=== PATIENT | male | born 1955 | race Caucasian/White ===

== ENCOUNTER 2021-02-16 11:15 | Inpatient (IN) | payer MEDICARE, SELFPAY ==
[2021-02-16] VITALS (10 sets, daily range): BP systolic 83–138; BP diastolic 56–99; PULSE 96–119; RESP 16–20; TEMP 35.9–36.6; O2SAT 97–100; BMI 17.2
--- NOTE | ~2021-02-16 | XR_ITS ---
XR chest 1V portable DATE: 02/16/2021 13:52 INDICATION: Tachycardia. Altered mental state. TECHNIQUE: Portable upright AP chest on 02/16/2021 at 1349 hours COMPARISON: None FINDINGS: There is anterior dislocation of the right glenohumeral joint with suggestion of Hill-Sachs deformity. There is likely chronic deformity of the upper right rib cage. There is diffuse osteopenia. There is prominent dextroscoliosis of the thoracic spine and levoscolios is of the lumbar spine. Heart size appears within normal limits. No pulmonary infiltrate or consolidation, pleural effusion o r pulmonary vascular congestion or pneumothorax is detected. IMPRESSION: No active cardiopulmonary disease Anterior dislocation of right shoulder with probable Hill-Sachs deformity Probable chronic deformity of the upper right rib cage Osteopenia Prominent thoracic and lumbar scoliosis Reviewed, dictated and finalized at location B. OR STRATEGY ANALYST
--- NOTE | ~2021-02-16 | XR_ITS ---
EXAMINATION: XR shoulder RT min 2V DATE: 02/18/2021 11:21 INDICATION: Right shoulder dislocation. TECHNIQUE: 5 views of right shoulder were obtained. COMPARISON: Chest single view 02/16/2021 FINDINGS: There is anterior dislocation of humeral head with respect to glenoid. There is an impactio n fracture deformity of posterolateral humeral head (Hill-Sachs fracture). There is severe osteoarthr itis of acromioclavicular joint. There are osteophytes of the glenoid. There are multiple age-indeter minate right rib fractures. IMPRESSION: 1. Anterior right shoulder dislocation. 2. Hill-Sachs fracture deformity. 3. Age-indeterminate right rib fractures. Reviewed, dictated and finalized at location A. NSIC COMPUTER EXAMINER
--- NOTE | ~2021-02-16 | CT_ITS ---
EXAMINATION: CT brain wo con DATE: 02/16/2021 13:51 INDICATION: Altered mental status. Confusion. Weakness. TECHNIQUE: Computed tomography (CT) of the head was performed without intravenous contrast. The mA wa s adjusted according to patient size. Iterative reconstruction technique was employed. The dose-lengt h product was 605.33 mGy-cm. COMPARISON: None FINDINGS: There are scattered areas of low attenuation in the cerebral white matter. There is no intr acranial hemorrhage, acute infarction, or abnormal intracranial mass lesion. The ventricles are feli l in size. The orbits are normal. There is mucosal thickening in the paranasal sinuses. The mastoid a ir cells are normal. C1 ring is chronically ununited anteriorly and possibly. IMPRESSION: 1. Mild nonspecific cerebral white matter disease, which likely represents chronic small vessel ische roel disease. Reviewed, dictated and finalized at location A. Y POLISHER IMPRESSION: 1. Mild nonspecific cerebral white matter disease, which likely represents director safety zulema small vessel ischemic disease.
--- NOTE | 2021-02-16 11:34 | ED.WEAKNESS ---
HPI - Weakness General Chief complaint: Weakness Stated complaint: ambulance Time Seen by Provider: 02/16/21 11:35 Source: family Mode of arrival: EMS Limitations: altered mental status, physical limitation and other (Developmental disability) History of Present Illness HPI Narrative: 65-year-old man brought to the emergency department by EMS the past of his nhmzovg-[id number] who lives with him. He has been weak, confused and eating poorly for last few days. He fell out of bed yesterday. His caregiver states that he does not do anything to care for himself since April that patient has not been able to ambulate much less transfer. This started after a head injury. His functional status is been dwindling. Patient has a history of hemiplegic CP predominantly left-sided weakness and lower extremity weakness he was able to ambulate with a walker and braces (but was very shaky) as recently as July of 2020. Even then his family was reporting that he mainly stays in bed. Complaint: generalized weakness Onset (ago): day(s) Duration: constant Location: generalized Migration: none Relieving factors: none Exacerbating factors: none Associated symptoms: confusion Related Data Home Medications Medication Instructions Recorded Confirmed No Home Medications 02/16/21 02/16/21 Allergies Allergy/AdvReac Type Severity Reaction Status Date / Time No Known Allergies Allergy Unverified 08/30/16 11:42 Review of Systems Review of Systems: ROS unobtainable: Yes unobtainable due to mental status and other (Responses are from his caregiver) Constitutional: Constitutional: Denies chills and Denies fever(s) Respiratory: Respiratory: Reports cough and Reports dyspnea Gastrointestinal: Gastrointestinal: Denies diarrhea and Denies vomiting Integumentary/Breasts: Comments: Bed sores PMFSH Past Medical History Medical History (Updated 02/16/21 @ 19:00 by Adam Ho MD) Cerebral palsy Developmental disability Hyperlipidemia Social History Social History (Updated 02/16/21 @ 13:11 by Adam Ho MD) Smoking status: Unknown if ever smoked Second hand tobacco smoke exposure: No Alcohol intake: never Substance use: never Substance use type: does not use Living arrangements: with family Spiritual care concerns: No Exam Const: General: ill appearing acutely and chronically Other: Cachectic. HENMT: Mouth: Yes dry mucous membranes Other: Poor dental care. Eyes: Conjunctivae: conjunctivae normal Pupils: Equal, round and reactive pupils present Resp: Effort & Inspection: normal respiratory effort and not labored Auscultation: clear to auscultation bilaterally, no rales, no rhonchi and no wheezes Cardio: Rate: tachycardic Rhythm: regular rhythm GI: GI Palp: Yes Soft to palpation and Yes Tenderness to palpation present (GI) (Mildly) Auscultation: normal bowel sounds : Other: Stenosis at the meatus with mild hypospadias. Skin: Other: Pale dry, often scaly skin. Hypertrophic changes and scaling over the hips, buttocks, with grade 1-2 pressure sores the medial knees. Neuro: General: moves all extremities Extrem: General: no clubbing, cyanosis or edema Other: Cool and dry. Psych: Appearance: other (Malodorous and disheveled) Attitude: cooperative Course Vital Signs Vital signs: Vital Signs Temperature 36.6 C 02/16/21 11:54 Pulse Rate 119 H 02/16/21 11:54 Respiratory Rate 20 02/16/21 11:54 Blood Pressure 85/57 L 02/16/21 11:54 Pulse Oximetry 100 02/16/21 11:54 Temperature 36.3 C L 02/16/21 17:33 Pulse Rate 117 H 02/16/21 17:33 Respiratory Rate 20 02/16/21 17:33 Blood Pressure 110/72 02/16/21 17:33 Pulse Oximetry 100 02/16/21 17:33 MDM - Weakness Lab Data Attestation: I reviewed the patient's lab results. Result diagrams: 02/16/21 12:31 02/16/21 12:31 Labs: Lab Results 02/16/21 02/16/21 02/16/21 Range/Units
--- NOTE | 2021-02-16 11:43 | ECG_ITS ---
Measurements Intervals [place] Rate: 120 P: -85 IN: 225 QRS: -56 QRSD: 100 T: 91 QT: 322 QTc: 457 Interpretive Statements SINUS OR ECTOPIC ATRIAL TACHYCARDIA VENTRICULAR PREMATURE COMPLEX LEFT ANTERIOR FASCICULAR BLOCK BORDERLINE ST-T WAVE ABNORMALITY- HIGH LATERAL LEADS BASELINE ARTIFACT- I, II, III, AVR, AVL, AVF, V1-V6 ABNORMAL ECG Electronically Signed On 02-16-2021 13:32:50 FIG BAR MACHINE OPERATOR by Elia Montoya D.O.
[2021-02-16 12:44] LABS: Basophils Absolute Auto 0.02 K/mm3 (0.00-0.10); Basophils Percent Auto 0.2 % (0.0-1.0); Eosinophils Absolute Auto 0.04 K/mm3 (0.02-0.50); Eosinophils Percent Auto 0.3 % (1.0-6.0); Hematocrit 36.2 % (40.0-54.0); Hemoglobin 11.4 g/dL (14.0-18.0); Immature Granulocyte Absolute 0.06 K/mm3 (0.00-0.00); Immature Granulocyte Percent A 0.5 % (0.0-0.0); Immature Platelet Fraction Pct 0.5 % (1.0-7.0); Lymphocytes Absolute Auto 0.69 K/mm3 (1.10-4.50); Lymphocytes Percent Auto 5.8 % (18.0-42.0); Mean Corpuscular HGB Conc 31.5 g/dL (32.0-36.0); Mean Corpuscular Hemoglobin 28.1 pg (27.0-31.0); Mean Corpuscular Volume 89.4 fL (78.0-102.0); Mean Platelet Volume 7.7 fl (8.7-11.0); Monocytes Absolute Auto 1.14 K/mm3 (0.10-0.90); Monocytes Percent Auto 9.6 % (2.0-11.0); Neutrophils Absolute Auto 9.9 K/mm3 (1.7-7.2); Neutrophils Percent Auto 83.6 % (50.0-70.0); Platelet Count Result 699 K/mm3 (150-420); Red Blood Count 4.05 M/mm3 (4.70-6.10); Red Cell Distribution Width 20.5 % (11.6-14.4); White Blood Count 11.9 K/mm3 (4.8-10.8)
[2021-02-16] MEDS: SODIUM CHLORIDE 0.9% IV 1,000 ML 999 ML IV CONT ×2 (12:45→13:40)
[2021-02-16 12:55] LABS: INR 1.1; Partial Thromboplastin Time 38.7 SEC (23.90-30.70); Prothrombin Time 11.8 Seconds (9.50-12.10)
[2021-02-16 12:57] LABS: Lactic Acid Reflex 1.9 mmol/L (0.4-2.0)
[2021-02-16 13:07] LABS: Alanine Aminotransferase 20 U/L (16-63); Alkaline Phosphatase 78 U/L (46-116); Anion Gap 12 mmol/L (8-16); Aspartate Amino Transferase 20 U/L (15-37); Bilirubin,Total 0.5 mg/dL (0.00-1.00); Blood Urea Nitrogen 12 mg/dL (7-18); Calcium 8.8 mg/dL (8.5-10.1); Carbon Dioxide 22 mmol/L (21-32); Chloride 106 mmol/L (98-108); Estimated CRCL calculation 70 ml/min; Estimated Glomerular Filt Rate > 60; Glucose 98 mg/dL (70-99); Osmolality Calculated 289 mOsm/kg (285-295); Potassium 3.8 mmol/L (3.5-5.1); Sodium 140 mmol/L (136-145); Total Protein 5.8 g/dL (6.4-8.2); Troponin I 11.2 ng/L (0.00-60.4)
[2021-02-16 13:08] LABS: CRP 20.3 mg/dL (0.0-0.9)
[2021-02-16 13:09] LABS: Creatine Kinase 339 U/L (39-308)
[2021-02-16 13:30] LABS: Influenza A QL RT-PCR Negative (Negative); Influenza B QL RT-PCR Negative (Negative); SARS-CoV-2 RNA PCR Negative (Negative)
--- NOTE | 2021-02-16 15:03 | PC.NURSE ---
Spoke with patient's guardian in regards to who patient sees for cardiology. Juma states that patient had an appointment with Dr. Patton but was never able to make it due to decline in health. RN asked Juma in regards to code status and he states that he needs to discuss it with his daughter and give us a call back.
[2021-02-16 15:14] LABS: Appearance Urine Turbid (Clear); Color Urine Yellow (Yellow); Protein Urine 3+ (Negative); pH Urine 7.5 (5.0-8.0)
[2021-02-16 15:15] LABS: Add Urine Microscopic? YES; Bilirubin Urine Negative (Negative); Blood Urine 3+ (Negative); Glucose Urine UA Negative (Negative); Ketones Urine 1+ (Negative); Leukocyte Esterase Ur 3+ LEU/UL (Negative); Nitrate Urine Positive (Negative); Squamous Epithelial Cell Urine Rare /hpf (Few); Urobilinogen Urine 0.2 mg/dL (0.2-1.0); WBC Urine 21-30 /hpf (0-3)
[2021-02-16 15:16] LABS: Bacteria Urine 4+ /hpf
[2021-02-16] MEDS: SODIUM CHLORIDE 0.9% IV 1,000 ML 100 ML IV CONT (15:41)
--- NOTE | 2021-02-16 16:12 | PC.NURSE ---
Patient turned to left side at this time
--- NOTE | 2021-02-16 16:30 | PC.NURSE ---
called Bill, guardian, and left voicemail informing him of room number and phone number to call for updates.
--- NOTE | 2021-02-16 17:57 | ADMGEN ---
This patient, Moses Avila, was admitted to 2nd Floor Room 204-2. Patient/family oriented to hospital policies and general routines including ID bracelet, bed and alarms, visiting hours, pain management, procedures, bathroom and other care routines, personal items, smoking policy, room service/diet, and visiting hours. Information on how to activate the Rapid Response Team has been discussed. Patient/Family are encouraged to report perceived risks to care and to ask questions if they do not understand what they are told or what they should do.
--- NOTE | 2021-02-16 17:58 | PC.NURSE ---
Pt sitting up in bed, wipes used on face/neck to clean off layers of skin, pt drinks ensure with assistance without difficulty, half cup of fruit and half glass of precious mist, rolon to gravity, hob elevated, extra pillows, glasses are on
[2021-02-16 18:48] LABS: Troponin I 7.1 ng/L (0.00-60.4)
--- NOTE | 2021-02-16 20:42 | PC.NURSE ---
Patient alert to self. When asked where he was he said here ' Drank 240 mls of precious mist with assistance. Call light in reach. Mark patent and draining dark urine.
--- NOTE | 2021-02-16 23:11 | PC.NURSE ---
Patient was cooperative with oral care and sponge bath. Bottom was red open areas to coccyx, right hip, and outer aspect of right ankle. Patient given bed bath. Skin extremely dr
--- NOTE | 2021-02-16 23:14 | PC.NURSE ---
add. skin was very dry. Oral care given. Patient able to state what town his is in. More aware of surroundings.
[2021-02-17] VITALS (9 sets, daily range): BP systolic 81–102; BP diastolic 58–74; PULSE 100–111; RESP 18; TEMP 36.2–36.8; O2SAT 98–100
[2021-02-17 00:42] LABS: Troponin I 8.9 ng/L (0.00-60.4)
[2021-02-17] MEDS: SODIUM CHLORIDE 0.9% IV 1,000 ML 100 ML IV CONT ×2 (02:28→13:03)
[2021-02-17] MEDS: ACETAMINOPHEN 500 MG TABLET 1000 MG PO (04:47)
--- NOTE | 2021-02-17 04:53 | PC.NURSE ---
Patient complaining of pain to coccyx. PRN tylenol given for comfort
[2021-02-17 05:37] LABS: Basophils Absolute Auto 0.03 K/mm3 (0.00-0.10); Basophils Percent Auto 0.3 % (0.0-1.0); Eosinophils Absolute Auto 0.15 K/mm3 (0.02-0.50); Eosinophils Percent Auto 1.4 % (1.0-6.0); Hematocrit 32.8 % (40.0-54.0); Immature Granulocyte Absolute 0.05 K/mm3 (0.00-0.00); Immature Granulocyte Percent A 0.5 % (0.0-0.0); Immature Platelet Fraction Pct 0.5 % (1.0-7.0); Lymphocytes Absolute Auto 0.86 K/mm3 (1.10-4.50); Mean Corpuscular HGB Conc 30.5 g/dL (32.0-36.0); Mean Corpuscular Hemoglobin 27.7 pg (27.0-31.0); Mean Corpuscular Volume 90.9 fL (78.0-102.0); Monocytes Absolute Auto 0.95 K/mm3 (0.10-0.90); Monocytes Percent Auto 8.8 % (2.0-11.0); Neutrophils Absolute Auto 8.7 K/mm3 (1.7-7.2); Platelet Count Result 599 K/mm3 (150-420); Red Blood Count 3.61 M/mm3 (4.70-6.10); Red Cell Distribution Width 20.6 % (11.6-14.4); White Blood Count 10.8 K/mm3 (4.8-10.8)
[2021-02-17 05:54] LABS: Alanine Aminotransferase 22 U/L (16-63); Albumin Level 1.6 g/dL (3.4-5.0); Alkaline Phosphatase 65 U/L (46-116); Anion Gap 9 mmol/L (8-16); Aspartate Amino Transferase 29 U/L (15-37); Bilirubin,Total 0.4 mg/dL (0.00-1.00); Blood Urea Nitrogen 9 mg/dL (7-18); Calcium 8.2 mg/dL (8.5-10.1); Carbon Dioxide 22 mmol/L (21-32); Chloride 111 mmol/L (98-108); Creatine Kinase 390 U/L (39-308); Estimated CRCL calculation 82 ml/min; Estimated Glomerular Filt Rate > 60; Glucose 98 mg/dL (70-99); Osmolality Calculated 292 mOsm/kg (285-295); Potassium 3.3 mmol/L (3.5-5.1); Sodium 142 mmol/L (136-145); Total Protein 4.8 g/dL (6.4-8.2)
--- NOTE | 2021-02-17 11:36 | PM.IMHP ---
H&P: HPI History of Present Illness Date/Time: 02/17/21 11:36 Moses Avila is a 65 year old male with Cerebral Palsy who comes to the hospital via ambulance. The patient's brother states the Pt has been more weak, confused, and eating less the past few days. It was reported that the Pt had fallen out of bed the day before being admitted. The family member states that Pt has been doing less and less for himself since April of 2020 after having sustained a head injury. Pt is a poor historian with information obtained from ER report. Brother states he is unable to take care of the Pt any longer. We are currently looking for placement for this individual. <MILENA Paula - Last Filed: 02/17/21 12:11> Chief Complaint: Weakness, decreased appetite <MILENA Paula - Last Filed: 02/17/21 12:11> Review of Systems Review of Systems: ROS unobtainable: Yes unobtainable due to mental status <MILENA Paula - Last Filed: 02/17/21 12:11> [facility] Past Medical History Medical History: Medical History Cerebral palsy Developmental disability Hyperlipidemia <MILENA Paula - Last Filed: 02/17/21 12:11> Social History Social History: Social History Smoking status: Unknown if ever smoked Second hand tobacco smoke exposure: No Alcohol intake: never Substance use: never Substance use type: does not use Living arrangements: with family Spiritual care concerns: No <MILENA Paula - Last Filed: 02/17/21 12:11> Meds Home Medications and Allergies Home medications: Home Medications Medication Instructions Recorded Confirmed Type No Home Medications 02/16/21 02/16/21 History cefdinir 300 mg PO Q12H #10 cap 02/19/21 Rx hydrocodone-acetaminophen 1 tablet PO Q8H PRN #20 tablet 02/19/21 Rx megestrol 20 mg PO TID #90 tablet 02/19/21 Rx <KATIE PaulaC - Last Filed: 02/17/21 12:11> Allergies/Adverse reactions: Allergies Allergy/AdvReac Type Severity Reaction Status Date / Time No Known Allergies Allergy Unverified 08/30/16 11:42 <MILENA Paula - Last Filed: 02/17/21 12:11> Vital Signs Vital Signs - 24 hr 02/16/21 11:54 02/16/21 12:16 02/16/21 13:12 Temperature 97.8 F Pulse Rate 119 H 119 H 111 H Respiratory Rate 20 18 Blood Pressure 85/57 L 83/56 L Pulse Oximetry 100 98 02/16/21 14:36 02/16/21 15:13 02/16/21 16:00 Temperature Pulse Rate 107 H 100 112 H Respiratory Rate 16 18 Blood Pressure 92/69 L 98/70 L Pulse Oximetry 100 98 100 02/16/21 16:22 02/16/21 17:33 02/16/21 19:58 Temperature 97.3 F L Pulse Rate 96 117 H 105 H Respiratory Rate 18 20 Blood Pressure 101/57 L 110/72 Pulse Oximetry 98 100 02/16/21 20:00 02/17/21 00:00 02/17/21 04:00 Temperature 96.7 F L 97.2 F L 98.2 F Pulse Rate 105 H 105 H 106 H Respiratory Rate 16 18 Blood Pressure 138/99 H 95/69 L 102/74 Pulse Oximetry 100 98 100 02/17/21 07:48 02/17/21 08:20 Temperature 97.1 F L Pulse Rate 109 H 106 H Respiratory Rate 18 Blood Pressure 88/58 L Pulse Oximetry 98 <MILENA Paula - Last Filed: 02/17/21 12:11> Exam Const: General: no acute distress, alert, awake, ill appearing, poor hygiene and tired appearing <MILENA Paula - Last Filed: 02/17/21 12:11> Nutritional Appearance: cachectic and malnourished <MILENA Paula - Last Filed: 02/17/21 12:11> Limitations: other limitations (contracted) <MILENA Paula - Last Filed: 02/17/21 12:11> Resp: Effort & Inspection: no cough and other (shallow respirations) <MILENA Paula - Last Filed: 02/17/21 12:11> Auscultation: diminished lung sounds (right side posterior) <MILENA Paula - Last Filed: 02/17/21 12:11> Cardio: Rate: regular rate <MILENA Paula - Last Filed: 02/17/21 12:1
[2021-02-17] MEDS: MEGESTROL ACETATE (*CHEMO) 20 MG TABLET PO ×2 (14:09→16:29)
--- NOTE | 2021-02-17 17:10 | PC.NURSE ---
pt set up straight in bed, able to feed himself mashed potatoes using spoon, also able to drink from small cup with lid and straw without assistance, call light within reach, rails up
[2021-02-18] VITALS: BP 94/68; PULSE 108; RESP 20; TEMP 36.4; O2SAT 100
--- NOTE | 2021-02-18 00:05 | PC.NURSE ---
IV site is out; New IV site started to the left wrist with a #20 margoth catheter. IV fluid infusing as ordered.
--- NOTE | 2021-02-18 00:20 | PC.NURSE ---
Pt incontinent of urine; Pt cleaned , changed and repositioned to his side.
--- NOTE | 2021-02-18 02:05 | PC.NURSE ---
Pt incontinent of urine; Pt cleaned, changed and repositioned. New bag of IV fluid infusing as ordered.
[2021-02-18] MEDS: SODIUM CHLORIDE 0.9% IV 1,000 ML 100 ML IV CONT ×3 (02:08→22:28)
--- NOTE | 2021-02-18 04:10 | PC.NURSE ---
Pt incontinent of urine; pt cleaned, changed and repositioned to his side.
[2021-02-18 05:27] VITALS: O2SAT 94
--- NOTE | 2021-02-18 05:51 | PCPTNOTE ---
02/17/21 - no POC needed as patient is being DC'd from skilled PT services due to being at baseline functional status. NusratTF
[2021-02-18 05:52] LABS: Hematocrit 31.6 % (40.0-54.0); Hemoglobin 9.6 g/dL (14.0-18.0); Mean Corpuscular HGB Conc 30.4 g/dL (32.0-36.0); Mean Corpuscular Hemoglobin 27.5 pg (27.0-31.0); Mean Corpuscular Volume 90.5 fL (78.0-102.0); Platelet Count Result 455 K/mm3 (150-420); Red Blood Count 3.49 M/mm3 (4.70-6.10); Red Cell Distribution Width 20.8 % (11.6-14.4); White Blood Count 8.9 K/mm3 (4.8-10.8)
[2021-02-18 05:57] LABS: Anion Gap 9 mmol/L (8-16); Blood Urea Nitrogen 9 mg/dL (7-18); Calcium 7.5 mg/dL (8.5-10.1); Carbon Dioxide 23 mmol/L (21-32); Chloride 106 mmol/L (98-108); Estimated CRCL calculation 88 ml/min; Estimated Glomerular Filt Rate > 60; Glucose 86 mg/dL (70-99); Osmolality Calculated 283 mOsm/kg (285-295); Potassium 3.4 mmol/L (3.5-5.1); Sodium 138 mmol/L (136-145)
--- NOTE | 2021-02-18 06:20 | PC.NURSE ---
New IV site started to the right hand with a #20 gauge catheter. IV fluid infusing as ordered. Pt incontinent of urine and was cleaned, changed and repositioned to his side.
[2021-02-18 08:00] VITALS: BP 100/62; PULSE 102; RESP 20; TEMP 36.4; O2SAT 100
[2021-02-18] MEDS: MEGESTROL ACETATE (*CHEMO) 20 MG TABLET PO ×3 (08:44→17:26)
[2021-02-18] MEDS: POTASSIUM CHLORIDE 20 MEQ TABLET PO (11:30)
--- NOTE | 2021-02-18 12:20 | PM.IMPN ---
Progress Note: A&P Assessment and Plan (1) Acute UTI: Code(s): N39.0 - Urinary tract infection, site not specified <Jhoan JosephTHOMAS hicks-C - Last Filed: 02/18/21 12:37> Status: Acute <Jhoan JosephTHOMAS hicks-C - Last Filed: 02/18/21 12:37> Assessment and Plan: Positive Nitrites, 21-30 WBC, 4+ Bacteria, 3+ LE, Blood and Urine Cx pending, Rocephin IVBP, IVF NS @ 100/h 02/18/2021 Pt is more alert today, continue with Rocephin, Cx showed mixed nallely <Jhoan Anna THOMAS Gonsalez-C - Last Filed: 02/18/21 12:37> (2) Dehydration: Code(s): E86.0 - Dehydration <Jhoan JosephTHOMAS hicks-C - Last Filed: 02/18/21 12:37> Status: Acute <Jhoan JosephTHOMAS hicks-C - Last Filed: 02/18/21 12:37> Assessment and Plan: 2 L Bolus in ER, currently 100ml/h, encouraging PO fluids, Pt refused to eat lunch today. 02/18/2021 continue with IVF, Pt is taking PO beter today <Jhoan JosephTHOMAS hicks-C - Last Filed: 02/18/21 12:37> (3) Cachectic: Code(s): R64 - Cachexia <Jhoan Anna THOMAS Gonsalez-C - Last Filed: 02/18/21 12:37> Status: Acute <Jhoan JosephTHOMAS hicks-C - Last Filed: 02/18/21 12:37> Assessment and Plan: Added Megace to medications for appetite. Regular diet 02/18/2021 will continue Megace on DC tomorrow <Jhoan BerryPamela Gonsalez APN-Abner - Last Filed: 02/18/21 12:37> Subjective Date/time seen: 02/18/21 12:20 Pt is more alert today. Pt has no other complaint except right shoulder pain which he says has been hurting for a while. He is unable to articulate how long a while has been for his shoulder pain. Images obtained and reviewed with Dr. Roa. Pt has no complaint of CP, SOB, Abdominal issues, in fact he states that his appetite is improved and that he ate all of his breakfast this AM. Pt has been accepted at [facility] however the room will not be ready until tomorrow as Pt will need to be in isolation at that facility once he arrives there. He will have PT/OT/[facility]. <Jhoan BerryKATIE Huntley - Last Filed: 02/18/21 12:37> Review of Systems Review of Systems: All systems reviewed & are unremarkable except as noted in HPI and below <Jhoan BerryPamela Gonsalez APN-C - Last Filed: 02/18/21 12:37> Exam Const: General: cooperative, comfortable, no acute distress, alert, awake and Physically active <Jhoan KristiMILENA Huntley - Last Filed: 02/18/21 12:37> Nutritional Appearance: cachectic and malnourished <Jhoan KristiPamela Gonsalez APN- - Last Filed: 02/18/21 12:37> Orientation/consciousness: oriented to person <Jhoan KristiPamela Gonsalez APN - Last Filed: 02/18/21 12:37> Resp: Effort & Inspection: normal respiratory effort <Jhoan BerryPamela Gonsalez APN- - Last Filed: 02/18/21 12:37> Auscultation: diminished lung sounds <Jhoan BerryPamela Gonsalez APN- - Last Filed: 02/18/21 12:37> Cardio: Rate: regular rate <Jhoan BerryPamela Gonsalez APN- - Last Filed: 02/18/21 12:37> Heart sounds: S1 normal heart sound present and S2 normal heart sound present <Jhoan BerryPamela Gonsalez APN- - Last Filed: 02/18/21 12:37> GI: GI Palp: Yes Soft to palpation, No Tenderness to palpation present (GI) and No Guarding due to palpation present (GI) <Jhoan KristiMILENA Huntley - Last Filed: 02/18/21 12:37> Auscultation: Hypoactive bowel sounds present <Jhoan KristiMILENA Huntley - Last Filed: 02/18/21 12:37> Skin: General skin exam: normal color and dry skin <Jhoan MILENA Matos - Last Filed: 02/18/21 12:37> Neuro: General: oriented to person <MILENA Paula - Last Filed: 02/18/21 12:37> Cranial nerves: Yes CN's II-XII intact bilaterally (grossly intact) <MILENA Paula - Last Filed: 02/18/21 12:37> Cognition (Neuro): normal cognition <MILENA Paula - Last Filed: 02/18/21 12:37> Speech: normal speech <MILENA Paula - Last Filed: 02/18/21 12:37> Extrem: Right upper extremity: shoulder/upper arm (Dislocation, Dr. Roa will attempt reduction, see his note) <MILENA Paula - Last Filed: 02/18
--- NOTE | 2021-02-18 15:35 | PC.NURSE ---
Patient prepped for shoulder manipulation to attempt reduction of dislocation right shoulder. 1535:O2 @ 2L per NC, SPO2-100%, ETCO2-25, RR-19, HR 104, B/P-104/71. 15:45-Etomadate administered, TXXT475/21, SPO2-99%, HR-103, B/p 107/78, 15:50-ETCO2-22, SPO2-100%, B/P-98/58, HR 105, reduction unsuccessful, 16:00-B/P-89/67, HR 105, SPO2-100%, Dr. Roa gave verbal order for bolus 250 NS, initiated. 16:05-B/P-107/70, HR-103, SPO2-100% 16:10-97.8, 103, 20, 103/67, 100%, 16:15-109/74, 102, 100%
[2021-02-18 16:00] VITALS: BP 105/82; PULSE 105; RESP 20; TEMP 36.6; O2SAT 100
[2021-02-18] MEDS: ETOMIDATE 20 MG/10 ML AMPUL 10 MG IV PUSH (16:45)
--- NOTE | 2021-02-18 19:47 | WPDPROCEDUR ---
Procedures Orthopedic Joint Reduction Joint #1: Time out performed: Yes Side: right Joint reduction location: shoulder Analgesia: procedural sedation ( etomidate 10 mg IV) Shoulder technique used (if applicable): external rotation Post-reduction x-ray obtained: No Splint applied: No Additional comments: time-out called. Respiratory therapist called to the room to monitor the oxygen saturations. Patient was medicated with 10 mg IV etomidate. Using external rotation attempted to reduce the anterior dislocation of the right shoulder. The patient has extensive osteophytes around the glenoid. Unable to reduce the shoulder. Unsure as to how long the patient has had this anterior dislocation of the shoulder. Refer the patient to opho for reduction. Postprocedure the patient has remained hemodynamically stable and is oxygenating well. No complications.
[2021-02-18 23:51] VITALS: BP 108/72; PULSE 110; RESP 16; TEMP 37.1; O2SAT 94
--- NOTE | 2021-02-19 02:08 | PC.NURSE ---
Pt was awake upon entering the room. Moses denied having any pain or needs at this time. Pt was oriented to the time of night and stated he is having some trouble sleeping. Pt was adjusted slightly in bed to help in comfort. Call light within reach and bed in lowest position.
[2021-02-19 05:17] LABS: Hematocrit 30.8 % (40.0-54.0); Hemoglobin 9.7 g/dL (14.0-18.0); Mean Corpuscular HGB Conc 31.5 g/dL (32.0-36.0); Mean Corpuscular Hemoglobin 27.6 pg (27.0-31.0); Mean Corpuscular Volume 87.7 fL (78.0-102.0); Mean Platelet Volume 7.7 fl (8.7-11.0); Platelet Count Result 369 K/mm3 (150-420); Red Blood Count 3.51 M/mm3 (4.70-6.10); Red Cell Distribution Width 20.2 % (11.6-14.4); White Blood Count 9.9 K/mm3 (4.8-10.8)
[2021-02-19 05:29] LABS: Anion Gap 8 mmol/L (8-16); Blood Urea Nitrogen 7 mg/dL (7-18); Calcium 7.5 mg/dL (8.5-10.1); Carbon Dioxide 21 mmol/L (21-32); Chloride 107 mmol/L (98-108); Estimated CRCL calculation 89 ml/min; Estimated Glomerular Filt Rate > 60; Glucose 92 mg/dL (70-99); Osmolality Calculated 280 mOsm/kg (285-295); Potassium 3.7 mmol/L (3.5-5.1); Sodium 136 mmol/L (136-145)
--- NOTE | 2021-02-19 07:34 | PM.DS ---
DS: Admitting Diagnosis Discharge Date 02/19/2021 <Jhoan JosephKATIE hicksC - Last Filed: 02/19/21 11:12> Admitting Diagnosis UTI, Dehydration <Jhoan JosephKATIE hicksC - Last Filed: 02/19/21 11:12> DS: Discharge Diagnosis Discharge Diagnosis (1) Acute UTI: Code(s): N39.0 - Urinary tract infection, site not specified <Jhoan GonsalezKATIEC - Last Filed: 02/19/21 11:12> Status: Acute <Jhoan JosephTHOMAS hicks-C - Last Filed: 02/19/21 11:12> Assessment and Plan: Positive Nitrites, 21-30 WBC, 4+ Bacteria, 3+ LE, Blood and Urine Cx pending, Rocephin IVBP, IVF NS @ 100/h 02/18/2021 Pt is more alert today, continue with Rocephin, Cx showed mixed nallely 02/19/2021 Pt taking fluids well, Has had Rocephin for 3 days, will DC with PO Ab for additional 5 days. Taking food and fluids well. Pt alert and interacting well. <Jhoan JosephKATIE hicksC - Last Filed: 02/19/21 11:12> (2) Dehydration: Code(s): E86.0 - Dehydration <Jhoan JosephKATIE hicksC - Last Filed: 02/19/21 11:12> Status: Acute <Jhoan JosephTHOMAS hicks-C - Last Filed: 02/19/21 11:12> Assessment and Plan: 2 L Bolus in ER, currently 100ml/h, encouraging PO fluids, Pt refused to eat lunch today. 02/18/2021 continue with IVF, Pt is taking PO better today 02/19/2021 taking PO food and fluids well <Jhoan BerryPamela Gonsalez APN-C - Last Filed: 02/19/21 11:12> (3) Cachectic: Code(s): R64 - Cachexia <Jhoan Anna THOMAS Gonsalez-C - Last Filed: 02/19/21 11:12> Status: Acute <Jhoan Anna MILENA Gonsalez - Last Filed: 02/19/21 11:12> Assessment and Plan: Added Megace to medications for appetite. Regular diet 02/18/2021 will continue Megace on DC tomorrow 02/19/2021 ... <MILENA Paula - Last Filed: 02/19/21 11:12> DS: Summary Hospital Course Hospital Course: UTI treated, appetite improved, Pt will be DC'ed to SNF. <MILENA Paula - Last Filed: 02/19/21 11:12> Time Spent with Patient Time attestation: Total time spent providing and/or coordinating discharge services: < 30 minutes <MILENA Paula - Last Filed: 02/19/21 11:12> Exam Const: General: cooperative, comfortable, no acute distress, alert, awake, Physically active and tired appearing <MILENA Paula - Last Filed: 02/19/21 11:12> Nutritional Appearance: cachectic <MILENA Paula - Last Filed: 02/19/21 11:12> Orientation/consciousness: oriented to person and oriented to place <MILENA Paula - Last Filed: 02/19/21 11:12> Limitations: other limitations (Chronic dislocation of right shoulder) <MILENA Paula - Last Filed: 02/19/21 11:12> Resp: Effort & Inspection: no cough and other (shallow respirations) <MILENA Paula - Last Filed: 02/19/21 11:12> Auscultation: clear to auscultation bilaterally <MILENA Paula - Last Filed: 02/19/21 11:12> Cardio: Rate: regular rate <MILENA Paula - Last Filed: 02/19/21 11:12> Heart sounds: S1 normal heart sound present and S2 normal heart sound present <MILENA Paula - Last Filed: 02/19/21 11:12> GI: GI Palp: Yes Soft to palpation, No Tenderness to palpation present (GI) and No Guarding due to palpation present (GI) <MILENA Paula - Last Filed: 02/19/21 11:12> Auscultation: normal bowel sounds <MILENA Paula - Last Filed: 02/19/21 11:12> Skin: General skin exam: dry skin <MILENA Paula - Last Filed: 02/19/21 11:12> Neuro: General: oriented to person and oriented to place <MILENA Paula - Last Filed: 02/19/21 11:12> Speech: Abnormal speech present (slow, not very clear) <MILENA Paula - Last Filed: 02/19/21 11:12> Extrem: Right upper extremity: shoulder/upper arm (chronic dislocation) <MILENA Paula - Last Filed: 02/19/21 11:12> Psych: Appearance: disheveled <MILENA Paula - Last Filed: 02/19/21 11:12> Affect: Indifferent affect
[2021-02-19 07:50] VITALS: BP 108/64; PULSE 101; RESP 16; TEMP 36.3; O2SAT 97
[2021-02-19] MEDS: MEGESTROL ACETATE (*CHEMO) 20 MG TABLET PO (09:34)
[2021-02-19 09:49] LABS: Prealbumin 6 mg/dL (21-43)
--- NOTE | 2021-02-19 13:10 | PC.NURSE ---
Report called to [place] at [facility].
[2021-02-19 14:02] VITALS: O2SAT 95
--- NOTE | 2021-02-19 14:40 | PC.NURSE ---
All discharge instructions and education given to EMS. Patient unable to comprehend. All belongings gathered together and sent with patient. Report given to EMS. Patient transferred from bed to stretcher with 2 assist[address] floor via stretcher accompanied by EMS. IV site removed, tip intact. Dressing applied to site.
--- NOTE | 2021-02-20 10:44 | PC.NURSE ---
retirement nurse states they received and understood the discharge instructions. Requested a script for norco be sent to their pharmacy.
== END 2021-02-19 14:40 | DRG 690 ==
LOC: CHSED 13:53 → CHS2ND 16:16
PROVIDERS: Nurse Practitioner Family; Admitting Provider Emergency Medicine; Emergency Provider Emergency Medicine; PCP Family Medicine; Visit Provider Emergency Medicine
DX: N39.0 Urinary tract infection, site not specified (principal); R64 Cachexia; M62.82 Rhabdomyolysis; G80.8 Other cerebral palsy; F89 Unspecified disorder of psychological development; E78.5 Hyperlipidemia, unspecified; Z20.822 Contact with and (suspected) exposure to COVID-19; E86.0 Dehydration; M24.811 Other specific joint derangements of right shoulder, not elsewhere classified; G80.9 Cerebral palsy, unspecified
CPT/HCPCS: 36415; 70450; 71045; 73030; 80048; 80053; 81001; 82550; 83605; 83735; 84134; 84484; 85025; 85027; 85055; 85610; 85730; 86140; 87040; 87086; 87088; 87502; 93005; 96360; 96361; 97162; 97166; 99285; A9270; C9803; J0696; J7030; U0003; U0005